=== PATIENT | female | born 1950 | race Caucasian/White ===

== ENCOUNTER 2018-10-09 08:21 | Day surgery (SDC) | payer MEDICARE, BC ==
[~2018-10-09] VITALS: Ht 152.4 cm; Wt 83.4 kg
[~2018-10-09 08:21] MED LIST: ALBU90OI61 INH; Avapro300 MG PO; CETI5 PO; Flonase 0.05% N16 GM; LIOT5 PO; MONT10T PO; Nexium40 MG PO; Pulmicort Fle180 MCG INH; SUMA25; Synthroid/Le0.075 MG PO; TEMA15 PO; Ventolin5 MG/1 ML INH
--- NOTE | 2018-10-09 10:35 | NUR ---
10/09/18 1035 Anastasiia Rey LATE ENTRY----PATIENT TO STEPDOWN WITH PAIN 5/10 SHE DESCRIBES CRAMPING. ABDOMEN IS SOFT TO PALPATION. PATIENT WAS ABLE TO TURN ONTO HER BACK AND SIT UP WITHOUT DIFFICULTY. CONVERSING AND DRINKING FLUIDS WITHOUT PROBLEMS. PRIOR TO DC OF THE IV PATIENT WAS RATING HER PAIN 2/10 AND STATES SHE IS FEELING MUCH BETTER AND READY TO GO HOME.
--- NOTE | 2018-10-09 10:37 | NUR ---
10/09/18 Anastasiia Pittman LATE ENTRY----WHEN WAKING UP AFTER PROCEDURE PATIENT WAS UNCOMFORTABLE, MOANING AND APPEARED UNCOMFORTABLE. WHEN ASKED PATIENT WAS ABLE TO TELL ME HER PAIN WAS 8/10 AND CRAMPING IN HER ABDOMEN. I EXPLAINED TO PATIENT THIS COULD BE FROM AIR IN HER ABDOMEN AND THIS SHOULD IMPROVE. DR VINCENT WAS NOTIFIED, ABDOMEN WAS SOFT TO PALPATION. I ENCOURAGED PATIENT TO PASS GAS/AIR IF SHE FELT THE NEED. PER DR VINCENT PATIENT MOVED TO STEPDOWN AND WILL WATCH.
== END 2018-10-09 10:25 | disposition home or self-care (01) ==
LOC: ORSCSDS 08:21
PROVIDERS: Internal Medicine Gastroenterology
PROC: 0DBL8ZX Excision of Transverse Colon, Via Natural or Artificial Opening Endoscopic, Diagnostic (ICD-10-PCS; principal; 2018-10-09 09:45)
PROC: 0DB68ZX Excision of Stomach, Via Natural or Artificial Opening Endoscopic, Diagnostic (ICD-10-PCS; principal; 2018-10-09 09:45)
PROC: 0DBN8ZX Excision of Sigmoid Colon, Via Natural or Artificial Opening Endoscopic, Diagnostic (ICD-10-PCS; principal; 2018-10-09 09:45)
PROC: 0D758ZZ Dilation of Esophagus, Via Natural or Artificial Opening Endoscopic (ICD-10-PCS; principal; 2018-10-09 09:45)
DX: Z12.11 Encounter for screening for malignant neoplasm of colon (principal); Z86.010 Personal history of colon polyps; D12.3 Benign neoplasm of transverse colon; R13.10 Dysphagia, unspecified; K63.5 Polyp of colon; K64.8 Other hemorrhoids; K22.2 Esophageal obstruction; K64.4 Residual hemorrhoidal skin tags; K25.9 Gastric ulcer, unspecified as acute or chronic, without hemorrhage or perforation; G47.33 Obstructive sleep apnea (adult) (pediatric); K21.0 Gastro-esophageal reflux disease with esophagitis; I10 Essential (primary) hypertension; M79.7 Fibromyalgia; E66.9 Obesity, unspecified; Z68.36 Body mass index [BMI] 36.0-36.9, adult; Z79.899 Other long term (current) drug therapy
CPT/HCPCS: 88305; 88342; J2704; J7120

== ENCOUNTER 2019-10-14 10:30 | Day surgery (SDC) | payer MEDICARE, BC ==
[~2019-10-14] VITALS: Ht 152.4 cm; Wt 82.0 kg
[~2019-10-14 10:30] MED LIST changes: +ALBU2.5V5 INH; +Citalopram HBr20 MG PO; +GABA300 PO; +HYDCHL25 PO; +METO50 PO; +NEURONTIN300 MG PO
[2019-10-14] MEDS ORDERED: DICLOFENAC SOD100 GM (11:19)
--- NOTE | 2019-10-14 11:39 | NUR ---
Karissa STATES SHE HAS A POLST. IT IS AT HOME, SHE STATES THAT SHE DOES NOT WANT CPR IF SHE ARREST HOWEVER; AGREES TODAY TO BE A FULL CODE GOING INTO [employer]NA[employer]. THE ADVANCE DIRECTIVE IS NOT HERE AT HOSPITAL. Pt states she completed one week ago. Pt verbalizes understanding that today she will be a full code the entire stay today. She will be bringing it to the hopsital in the near future.
--- NOTE | 2019-10-14 11:43 | NUR ---
COVID 19 NEGATIVE 10/12/19
[2019-10-14] MEDS ORDERED: CLOP75 PO (14:02)
--- NOTE | 2019-10-14 14:15 | NUR ---
1400 PATIENT RETURNED FROM THE [facility] WITH LEFT RADIAL ACCESS WUITH TR BAND IN PLACE WITH 10 ML OF AIR IN THE BAND. DROWSY, IN A RECLINER, MONITOR NEGRITO;IED, IV SALINE LOCKED. CALL LIGHT IN REACH. DRINKING SIPS OF WATER USING THE RIGHT HAND ONLY.
--- NOTE | 2019-10-14 14:16 | NUR ---
1415 PATIENT AWAKE NOW AND READY TO EAT. LUNCH SERVED, USING RIGHT HAND ONLY.
--- NOTE | 2019-10-14 14:43 | NUR ---
DR. BATES HERE TO DISCUSS PROCEDURE WITH PATIENT.
--- NOTE | 2019-10-14 16:12 | NUR ---
[address] TO THE LEFT RADIAL. BEGAN REMOVING AIR PER PROTOCOL.
--- NOTE | 2019-10-14 16:13 | NUR ---
1615 ALL AIR OUT OF THE BAND AT 1550. NO BLEEDING NOTED. PATIENT RESTING QUEITLY IN RECLINER. PATIENT PREVIOUSLY CALL AND HE WILL BE HERE TO DRIVE HER HOME.
--- NOTE | 2019-10-14 16:20 | NUR ---
1600 PATIENT C/O HEADACH COMING ON. GIVEN TYLENOL 650 MG PO ORDERED FOR PAIN.
--- NOTE | 2019-10-14 16:48 | NUR ---
1425 PATIENT UP AND DRESSED. PIV REMOVED FROM THE RIGHT AC, CATHETER TIP INTACT AND PRESSURE DRESSING APPLIED. HEADACHE BETTER BUT AURA OF MIGRAINE STILL PRESENT. TR BAND FLAT AND REMOVED, SITE CLEANED AND CLOTH DOT PLACED. WHITE ARM BOARD REPLACED AND ALL DISCHARGE INSTRUCTIONS REMOVED. PATIENT NEW SCRIPT WAS CALLED INTO THE PHARMACY ADN SHE WILL PICK IT UP ON HER WAY HOME. DISCHARGED VIA WHEELCHAIR TO VIA PRIVATE VEHICLE, HE IS HER SENIOR UI DESIGNER.
== END 2019-10-14 22:48 | disposition home or self-care (01) ==
LOC: MHTC 10:30
DX: I70.8 Atherosclerosis of other arteries (principal); I10 Essential (primary) hypertension; J45.909 Unspecified asthma, uncomplicated; Z88.2 Allergy status to sulfonamides; Z88.0 Allergy status to penicillin; Z88.8 Allergy status to other drugs, medicaments and biological substances; Z79.899 Other long term (current) drug therapy
CPT/HCPCS: 36200; 37236; 75605; 75710; 76937; 99152; 99153; A9270; C1725; C1769; C1876; C1887; C1894; J1644; J2250; J3010; J7030; Q9967

== ENCOUNTER → 2020-04-13 | Outpatient (CLI) | payer MEDICARE, BC ==
[~2020-04-13] MED LIST changes: +CLOP75 PO; +DICLOFENAC SOD100 GM
[2020-04-13 15:13] LABS: Protein, Urine Quantitative <5.0 mg/dL (0.0-11.9)
== END | disposition home or self-care (01) ==
LOC: LAB SHORT 10:00 → LAB 10:00 → LAB FUT 04-11 16:45
PROVIDERS: Internal Medicine Nephrology
DX: N18.30 Chronic kidney disease, stage 3 unspecified (principal); D63.1 Anemia in chronic kidney disease; N25.81 Secondary hyperparathyroidism of renal origin; E55.9 Vitamin D deficiency, unspecified; E78.00 Pure hypercholesterolemia, unspecified; G60.9 Hereditary and idiopathic neuropathy, unspecified; R76.9 Abnormal immunological finding in serum, unspecified; R94.5 Abnormal results of liver function studies
CPT/HCPCS: 81050; 82043; 82570; 84156

== ENCOUNTER → 2020-12-21 | Outpatient (CLI) | payer MEDICARE, BC ==
[2020-12-21 17:23] LABS: Protein, Urine Quantitative 5.7 mg/dL (0.0-11.9)
[2020-12-21 18:08] LABS: Microalbumin, Urine Quant. <5.000 mg/L (0.000-20.000)
== END | disposition home or self-care (01) ==
LOC: LAB 09:30 → LAB SHORT 09:30 → LAB FUT 12-18 11:10
PROVIDERS: Internal Medicine Nephrology
DX: N18.30 Chronic kidney disease, stage 3 unspecified (principal); D63.1 Anemia in chronic kidney disease; N25.81 Secondary hyperparathyroidism of renal origin; E55.9 Vitamin D deficiency, unspecified; E78.00 Pure hypercholesterolemia, unspecified; R76.9 Abnormal immunological finding in serum, unspecified; R94.5 Abnormal results of liver function studies; R94.6 Abnormal results of thyroid function studies
CPT/HCPCS: 81050; 82043; 82570; 84156

== ENCOUNTER 2021-03-23 10:35 | Day surgery (SDC) | payer MEDICARE, BC ==
[~2021-03-23] VITALS: Ht 152.4 cm; Wt 86.6 kg
[2021-03-23] MEDS ORDERED: FURO20 (11:20)
== END 2021-03-23 12:48 | disposition home or self-care (01) ==
LOC: ORSCSDS 10:35
PROVIDERS: Internal Medicine Gastroenterology
PROC: 0D757ZZ Dilation of Esophagus, Via Natural or Artificial Opening (ICD-10-PCS; principal; 2021-03-23 11:45)
PROC: 0DB58ZX Excision of Esophagus, Via Natural or Artificial Opening Endoscopic, Diagnostic (ICD-10-PCS; principal; 2021-03-23 11:45)
DX: R13.10 Dysphagia, unspecified (principal); I10 Essential (primary) hypertension; G47.33 Obstructive sleep apnea (adult) (pediatric); J45.909 Unspecified asthma, uncomplicated; E66.9 Obesity, unspecified; Z68.37 Body mass index [BMI] 37.0-37.9, adult; Z79.899 Other long term (current) drug therapy
CPT/HCPCS: 88305; J2704; J7120

== ENCOUNTER 2021-05-06 06:40 | Inpatient (IN) | payer MEDICARE, BC ==
[~2021-05-06] VITALS: Ht 152.4 cm; Wt 82.1 kg
[~2021-05-06 06:40] MED LIST changes: +EUTHYROX88 MCG PO; +FURO20 PO; +ONDA4 PO; +Prozac20 MG PO; -Synthroid/Le0.075 MG PO; +Tessalon200 MG PO
[2021-05-06 07:25] LABS: BASOPHILS ABSOLUTE AUTO 0.05 K/mm3 (0.00-0.23); BASOPHILS PERCENT AUTO 1 % (0-2); EOSINOPHILS ABSOLUTE AUTO 0.07 K/mm3 (0.00-0.68); EOSINOPHILS PERCENT AUTO 1 % (0-6); Hematocrit 40.1 % (33.0-51.0); Hemoglobin 13.5 g/dL (11.5-16.0); IMMATURE GRAN ABSOLUTE AUTO 0.08 K/mm3 (0.00-0.10); IMMATURE GRAN PERCENT AUTO 1 % (0-1); LYMPHOCYTES ABSOLUTE AUTO 1.53 K/mm3 (0.84-5.20); LYMPHOCYTES PERCENT AUTO 15 % (21-46); MONOCYTES ABSOLUTE AUTO 1.36 K/mm3 (0.16-1.47); MONOCYTES PERCENT AUTO 13 % (4-13); Mean Corpuscular HGB 30.6 pg (26.0-34.0); Mean Corpuscular HGB Conc 33.7 g/dL (31.5-36.5); Mean Corpuscular Volume 91 fL (80-100); Mean Platelet Volume 9.4 fL (9.1-12.4); NEUTROPHILS ABSOLUTE AUTO 7.34 K/mm3 (1.96-9.15); NEUTROPHILS PERCENT AUTO 70 % (41-73); Platelet Count 565 K/mm3 (150-400); RDW Coefficient Variation 12.6 % (11.7-14.2); RDW Standard Deviation 42.2 fL (35.1-46.3); Red Blood Cell Count 4.41 M/mm3 (3.80-5.20); White Blood Cell Count 10.43 K/mm3 (4.00-11.30)
[2021-05-06 07:36] LABS: Albumin, Blood 2.7 g/dL (3.4-5.0); Albumin/Globulin Ratio 0.6 (0.8-1.8); Bilirubin, Total 0.5 mg/dL (0.1-1.0); Calcium, Blood 8.8 mg/dL (8.5-10.1); Creatinine, Blood 1.06 mg/dL (0.40-1.00); Globulin, Blood 4.7 g/dL (2.2-4.0); Potassium, Blood 3.5 mmol/L (3.5-5.5); Total Protein, Blood 7.4 g/dL (6.4-8.2)
[2021-05-06] MEDS ORDERED: Ventolin/Proventil INH (09:39)
[2021-05-06] MEDS ORDERED: Pulmicort Fle180 MCG INH (09:40)
[2021-05-06] MEDS ORDERED: FLUOXETINE HCL20 M1 PO (09:41)
[2021-05-06] MEDS ORDERED: GABA300 PO (09:43)
[2021-05-06] MEDS ORDERED: LEVO-T88 MC1 PO (09:44)
[2021-05-06] MEDS ORDERED: MONT10T PO (09:45)
[2021-05-06] MEDS ORDERED: RESTORIL15 M1 PO (09:46)
[2021-05-06 09:47] LABS: Source, Urine Clean Catch
[2021-05-06] MEDS ORDERED: AVAPRO75 MG PO (09:51)
[2021-05-06 09:52] LABS: Appearance, Urine Clear (Clear); Bilirubin, Urine Neg (Neg); Blood, Urine 1+ (Neg); Color, Urine Yellow (P-Yellow); Glucose Qualitative, Urine Neg (Neg); Ketones, Urine 1+ (Neg); Leukocyte Esterase, Urine Neg (Neg); Nitrite, Urine Neg (Neg); Protein, Urine 2+ (Neg); Urobilinogen, Urine NORM (Normal)
[2021-05-06] MEDS ORDERED: Lopressor 25 mg25 MG PO (09:52)
[2021-05-06 10:02] LABS: White Blood Cells, Urine Not Seen /hpf (0-5)
[2021-05-06 10:03] LABS: Bacteria Few /hpf; Red Blood Cells, Urine 0-2 /hpf (0-2); Squamous Epithelial Cells Mod /hpf (Few)
[2021-05-06 10:05] LABS: Other Crystals Rare /hpf
[2021-05-06 10:06] LABS: Hyaline Casts 0-2 /lpf (0-2); Mucus Light (0-Heavy)
[2021-05-06 10:17] LABS: Anti-Xa UFH, PHA Monitoring <0.10 IU/mL; Prothrombin Time Results 11.5 Sec (9.7-11.5)
--- NOTE | 2021-05-06 11:05 | NUR ---
PATIENT ARRIVED IN ROOM 1045. BED IS IN LOW POSITION, WITH ALARM ON. FALL PRECAUTIONS DISCUSSED WITH ABIGAIL. PATIENT ORIENTATED TO HER SURROUNDINGS. PATIENT HAS 20ac IV RUNNING FLUIDS. COVID TEST IS ORDERED TO CONFIRM DX. PATIENT IS ON ISOLATION. FULL LIQUID DIET IS ORDERED DUE TO NAUSEA AND VOMITTING. PATIENT REPORTS THAT HER PAIN LEVEL IS DOWN TO A 4 CURRENTLY.
[2021-05-06 13:19] LABS: Influenza A, PCR NEGATIVE (NEGATIVE); Influenza B, PCR NEGATIVE (NEGATIVE); Resp Syncytial Virus, PCR NEGATIVE (NEGATIVE)
[2021-05-06 13:27] LABS: SARS-Cov-2 (COVID-19) PCR, MMC POSITIVE (NEGATIVE)
--- NOTE | 2021-05-06 18:13 | NUR ---
ROCEPHIN WAS ORDERED, REQUIRING ANOTHER IV TO BE PLACED. PLACEMENT UNSUCCESSFUL. CHARGE NURSE NOTIFIED.
--- NOTE | 2021-05-06 18:50 | NUR ---
PATIENT CAME FROM ER TODAY WITH PNEUMONIA R/T COVID. A COVID TEST WAS PERFORMED TO CONFIRM THE DIAGNOSIS THAT SHE WAS GIVEN 7-10 DAYS AGO. THE PATIENT HAS AN IV WITH HEPARIN RUNNING AND ns AT 100. ANOTHER IV SITE NEEDS TO BE PLACED DUE TO ROCEPHIN BEING ORDERED. FIRST ATTEMPTS AT NEW IV PLACEMENT UNSUCCESSFUL. PATIENT HAS PAIN IN ABDOMEN AND USES THE PRN OXYCODONE WITH EFFECTIVENESS. SHE IS ON A FULL LIQUID DIET DUE TO NAUSEA AND VOMITING. SHE HASN'T HAD ANY EPISODES OF N&V SINCE COMING TO THE FLOOR. PATIENT REPORTS THAT COUGH RETURNS CLEAR FLUID. LS ARE CRACKLES THROUGH OUT.
[2021-05-07 01:11] LABS: BASOPHILS ABSOLUTE AUTO 0.04 K/mm3 (0.00-0.23); BASOPHILS PERCENT AUTO 0 % (0-2); EOSINOPHILS PERCENT AUTO 1 % (0-6); Hematocrit 37.9 % (33.0-51.0); Hemoglobin 12.1 g/dL (11.5-16.0); IMMATURE GRAN ABSOLUTE AUTO 0.09 K/mm3 (0.00-0.10); IMMATURE GRAN PERCENT AUTO 1 % (0-1); LYMPHOCYTES ABSOLUTE AUTO 1.61 K/mm3 (0.84-5.20); LYMPHOCYTES PERCENT AUTO 14 % (21-46); MONOCYTES ABSOLUTE AUTO 1.63 K/mm3 (0.16-1.47); MONOCYTES PERCENT AUTO 14 % (4-13); Mean Corpuscular HGB 30.4 pg (26.0-34.0); Mean Corpuscular HGB Conc 31.9 g/dL (31.5-36.5); Mean Corpuscular Volume 95 fL (80-100); Mean Platelet Volume 9.4 fL (9.1-12.4); NEUTROPHILS ABSOLUTE AUTO 8.14 K/mm3 (1.96-9.15); NEUTROPHILS PERCENT AUTO 70 % (41-73); Platelet Count 444 K/mm3 (150-400); RDW Coefficient Variation 12.8 % (11.7-14.2); RDW Standard Deviation 45.3 fL (35.1-46.3); Red Blood Cell Count 3.98 M/mm3 (3.80-5.20); White Blood Cell Count 11.61 K/mm3 (4.00-11.30)
[2021-05-07 01:28] LABS: Anti-Xa UFH, PHA Monitoring 0.65 IU/mL; D-Dimer, Quantitative 3.09 mg/L FEU (0.00-0.52)
[2021-05-07 01:29] LABS: Albumin, Blood 2.7 g/dL (3.4-5.0); Albumin/Globulin Ratio 0.7 (0.8-1.8); Bilirubin, Total 0.2 mg/dL (0.1-1.0); Bun/Creatinine Ratio 13.6 (12.0-20.0); Calcium, Blood 8.3 mg/dL (8.5-10.1); Creatinine, Blood 0.96 mg/dL (0.40-1.00); Globulin, Blood 3.9 g/dL (2.2-4.0); Magnesium, Blood 1.9 mg/dL (1.6-2.4); Potassium, Blood 3.8 mmol/L (3.5-5.5); Total Protein, Blood 6.6 g/dL (6.4-8.2)
--- NOTE | 2021-05-07 04:27 | NUR ---
NAPRAPATH SUMMARY PATIENT HAD A FAIR SHIFT. WITH V/S CHECKED AND STABLE. STILL HAVING ABDOMINAL PAIN, SHE WAS MEDICATED SHE NEEDED. WILL CONTINUE TO MONITOR HER.
--- NOTE | 2021-05-07 18:12 | NUR ---
Patient DX covid Pneumonia-spleen infarct. She is on Hep drip of 17/hr. she was seen by respiratory today and given breathing treatment and placed on O2 2L. Patient continues to have complaint of pain, but complaints appear less frequent. Pain is usually around a 6 when pain med is requested. Patients pain is located in abd, both mid and LUQ. She also states that it hurts in her chest when she inhales. We will continue to monitor and provide support as directed.
--- NOTE | 2021-05-08 04:04 | NUR ---
SHIFT SUMMARY: HEPARIN GTT IS INFUSING AT 17 MEQ/KG/HR. 2052 ANTI XA RESULT WAS 0.49, NO CHANGES TO RATE. PATIENT REPORTS PAIN IN LEFT SIDE, TYLENOL WAS GIVEN WITH GOOD EFFECT. PATIENT REMAINS IN DROPLET ISOLATION FOR COVID.
[2021-05-08 05:46] LABS: Hematocrit 35.5 % (33.0-51.0); Hemoglobin 11.3 g/dL (11.5-16.0); Mean Corpuscular HGB 30.1 pg (26.0-34.0); Mean Corpuscular HGB Conc 31.8 g/dL (31.5-36.5); Mean Corpuscular Volume 95 fL (80-100); Platelet Count 464 K/mm3 (150-400); RDW Standard Deviation 45.2 fL (35.1-46.3); Red Blood Cell Count 3.75 M/mm3 (3.80-5.20); White Blood Cell Count 12.88 K/mm3 (4.00-11.30)
--- NOTE | 2021-05-08 10:33 | NUR ---
Pt. was alert and welcomed my visit. Pt. had a bad cough and was unsettled by pain attributed to a blood clot on her spleen. Nurse and Physician visit while I am present. Established rapport with pt. Normalized pt. experience and supported the input from the physician. Pt. displayed evidence of enagement and agreement. Pt. verbalized encouragement and gratitude. Prayed with Pt.
[2021-05-08] MEDS ORDERED: ELIQUIS5 M2 PO (15:46)
[2021-05-08] MEDS ORDERED: DOCU100 PO (15:46)
[2021-05-08] MEDS ORDERED: OXYC10TA19 PO (15:47)
[2021-05-08] MEDS ORDERED: Sen-O-Tab8.6 MG PO (15:47)
--- NOTE | 2021-05-08 16:25 | NUR ---
DISCHARGE SUMMARY: PT A/O X 4 AT TIME OF DISCHARGE, STABLE ON FEET. PT EDUCATED ON DISCHARGE MEDICATIONS AND INSTRUCTIONS. SPOUSE PRESENT. PT VU. PT ASSISTED WITH PACKING UP BELONGINGS. PT ESCORTED TO POV VIA WC BY SHAYAN.
== END 2021-05-08 16:22 | disposition home or self-care (01) | DRG 177 ==
LOC: ER 06:40 → MEDS 09:29
PROVIDERS: Emergency Medicine; Internal Medicine; ADMIT Internal Medicine
DX: U07.1 COVID-19 (principal); J12.82 Pneumonia due to coronavirus disease 2019; J96.01 Acute respiratory failure with hypoxia; D68.69 Other thrombophilia; N39.0 Urinary tract infection, site not specified; D73.5 Infarction of spleen; K21.9 Gastro-esophageal reflux disease without esophagitis; G62.9 Polyneuropathy, unspecified; I16.0 Hypertensive urgency; R11.2 Nausea with vomiting, unspecified; T50.B95A Adverse effect of other viral vaccines, initial encounter; I12.9 Hypertensive chronic kidney disease with stage 1 through stage 4 chronic kidney disease, or unspecified chronic kidney disease; N18.9 Chronic kidney disease, unspecified; J45.909 Unspecified asthma, uncomplicated; E03.9 Hypothyroidism, unspecified; Z90.49 Acquired absence of other specified parts of digestive tract; Z90.89 Acquired absence of other organs; Z90.710 Acquired absence of both cervix and uterus; Z98.51 Tubal ligation status; Z88.0 Allergy status to penicillin; Z88.2 Allergy status to sulfonamides; Z88.8 Allergy status to other drugs, medicaments and biological substances; Z79.899 Other long term (current) drug therapy
CPT/HCPCS: 0241U; 36415; 74177; 80053; 81001; 83690; 83735; 85025; 85027; 85379; 85520; 85610; 86140; 87086; 93005; 93010; 94640; 96374-59; 96375; 99285-25; A9270; J0696; J1644; J2270; J2405; J3010; J7030; J7050; Q9967

== ENCOUNTER → 2021-12-03 | Outpatient (CLI) | payer MEDICARE, BC ==
[~2021-12-03] MED LIST changes: +AVAPRO75 MG PO; +DOCU100 PO; +ELIQUIS5 M2 PO; +FLUOXETINE HCL20 M1 PO; +LEVO-T88 MC1 PO; +Lopressor 25 mg25 MG PO; +OXYC10TA19 PO; +RESTORIL15 M1 PO; +Sen-O-Tab8.6 MG PO; +Ventolin/Proventil INH
[2021-12-03 17:14] LABS: BASOPHILS PERCENT AUTO 1 % (0-2); EOSINOPHILS PERCENT AUTO 1 % (0-6); Hematocrit 40.5 % (33.0-51.0); Hemoglobin 13.6 g/dL (11.5-16.0); IMMATURE GRAN ABSOLUTE AUTO 0.04 K/mm3 (0.00-0.10); IMMATURE GRAN PERCENT AUTO 0 % (0-1); LYMPHOCYTES ABSOLUTE AUTO 2.48 K/mm3 (0.84-5.20); LYMPHOCYTES PERCENT AUTO 26 % (21-46); MONOCYTES ABSOLUTE AUTO 1.33 K/mm3 (0.16-1.47); MONOCYTES PERCENT AUTO 14 % (4-13); Mean Corpuscular HGB 30.8 pg (26.0-34.0); Mean Corpuscular HGB Conc 33.6 g/dL (31.5-36.5); Mean Corpuscular Volume 92 fL (80-100); NEUTROPHILS ABSOLUTE AUTO 5.39 K/mm3 (1.96-9.15); NEUTROPHILS PERCENT AUTO 57 % (41-73); Platelet Count 430 K/mm3 (150-400); RDW Coefficient Variation 13.3 % (11.7-14.2); RDW Standard Deviation 45.1 fL (35.1-46.3); Red Blood Cell Count 4.41 M/mm3 (3.80-5.20); White Blood Cell Count 9.44 K/mm3 (4.00-11.30)
[2021-12-03 17:35] LABS: Albumin, Blood 3.4 g/dL (3.4-5.0); Albumin/Globulin Ratio 0.8 (0.8-1.8); Bilirubin, Total 0.4 mg/dL (0.1-1.0); Calcium, Blood 8.7 mg/dL (8.5-10.1); Creatinine, Blood 1.31 mg/dL (0.40-1.00); Globulin, Blood 4.2 g/dL (2.2-4.0); Potassium, Blood 3.4 mmol/L (3.5-5.5); Total Protein, Blood 7.6 g/dL (6.4-8.2)
== END | disposition home or self-care (01) ==
LOC: LAB SHORT 17:09
PROVIDERS: Physician Assistant
DX: R06.00 Dyspnea, unspecified (principal)
CPT/HCPCS: 80053; 84484; 85025; 85379

== ENCOUNTER → 2023-08-06 | Outpatient (CLI) | payer MEDICARE, BC ==
[2023-08-06 15:11] LABS: Microalb/Creat Ratio UR, Rand 11.085 mg/g (0.000-30.000); Microalbumin, Random Urine 14.3 mg/L (0.000-20.000); Protein, Urine Random 16.4 mg/dL (0.0-11.9); Protein/Creat Ratio, Ur Random 0.1
== END ==
LOC: LAB 12:46 → LAB SHORT 12:46 → EDSTATUS 08-04 14:30 → LAB FUT 08-04 14:30
PROVIDERS: Internal Medicine Nephrology
DX: N18.30 Chronic kidney disease, stage 3 unspecified (principal); D63.1 Anemia in chronic kidney disease; N25.81 Secondary hyperparathyroidism of renal origin; E55.9 Vitamin D deficiency, unspecified; E78.00 Pure hypercholesterolemia, unspecified; R76.9 Abnormal immunological finding in serum, unspecified; R94.5 Abnormal results of liver function studies; R94.6 Abnormal results of thyroid function studies
CPT/HCPCS: 82043; 82570; 84156

== ENCOUNTER 2024-03-12 14:04 | Day surgery (SDC) | payer MEDICARE, BC ==
[~2024-03-12] VITALS: Ht 149.9 cm; Wt 82.0 kg
[~2024-03-12 14:04] MED LIST changes: +Atropine Sulfate 0.1 MG/ML 10ML SYR ONE; +Glycopyrrolate 0.2 MG/ML 1MLVIAL ONE; +Lactated Ringer's 1,000 ML IV ONE; +Lidocaine 2% 5 ML SDV ONE; +Lidocaine HCl/Pf 1% 5 ML VIAL ONE; +Methylene Blue 1% 100 MG/10 ML VIAL ONE; +Ondansetron HCl 2 MG / ML 2ML Vial ONE; +ePHEDrine Sulfate 50 MG/ML 1ML Injection ONE; +propofoL 50 ML IV ONE
[2024-03-12] MEDS ORDERED: Lactated Ringer's 1,000 ML IV ONE (14:45)
[2024-03-12] MEDS ORDERED: Crestor40 MG (14:48)
[2024-03-12] MEDS ORDERED: ROPI1 (14:49)
[2024-03-12 15:59] VITALS: BP 133/90
== END 2024-03-12 15:50 | disposition home or self-care (01) ==
LOC: ORSCSDS 14:04
PROVIDERS: Internal Medicine Gastroenterology
PROC: 0DBL8ZX Excision of Transverse Colon, Via Natural or Artificial Opening Endoscopic, Diagnostic (ICD-10-PCS; principal; 2024-03-12 15:15)
PROC: 0DBN8ZX Excision of Sigmoid Colon, Via Natural or Artificial Opening Endoscopic, Diagnostic (ICD-10-PCS; principal; 2024-03-12 15:15)
PROC: 0DBP8ZX Excision of Rectum, Via Natural or Artificial Opening Endoscopic, Diagnostic (ICD-10-PCS; principal; 2024-03-12 15:15)
DX: R19.4 Change in bowel habit (principal); Z86.0101 Personal history of adenomatous and serrated colon polyps; K62.1 Rectal polyp; D12.5 Benign neoplasm of sigmoid colon; K63.5 Polyp of colon; E11.9 Type 2 diabetes mellitus without complications; G47.33 Obstructive sleep apnea (adult) (pediatric); I10 Essential (primary) hypertension; I25.10 Atherosclerotic heart disease of native coronary artery without angina pectoris; K21.9 Gastro-esophageal reflux disease without esophagitis; F32.A Depression, unspecified
CPT/HCPCS: 82947; 88305; J0461; J2003; J2405; J2704; J7120; Q9968

== ENCOUNTER 2024-05-27 12:15 | Emergency (ER) | payer MEDICARE, BC ==
[~2024-05-27] VITALS: Ht 149.9 cm; Wt 83.9 kg
[~2024-05-27 12:15] MED LIST changes: -Atropine Sulfate 0.1 MG/ML 10ML SYR ONE; +Crestor40 MG; -Glycopyrrolate 0.2 MG/ML 1MLVIAL ONE; -Lactated Ringer's 1,000 ML IV ONE; -Lidocaine 2% 5 ML SDV ONE; -Lidocaine HCl/Pf 1% 5 ML VIAL ONE; -Methylene Blue 1% 100 MG/10 ML VIAL ONE; -Ondansetron HCl 2 MG / ML 2ML Vial ONE; +ROPI1; -ePHEDrine Sulfate 50 MG/ML 1ML Injection ONE; -propofoL 50 ML IV ONE
[2024-05-27 12:29] VITALS: BP 158/102
[2024-05-27 13:19] LABS: Albumin, Blood 3.3 g/dL (3.4-5.0); Albumin/Globulin Ratio 0.8 (0.8-1.8); Bilirubin, Total 0.5 mg/dL (0.1-1.0); Calcium, Blood 9.6 mg/dL (8.5-10.1); Creatinine, Blood 1.25 mg/dL (0.40-1.00); Globulin, Blood 3.9 g/dL (2.2-4.0); Potassium, Blood 4.8 mmol/L (3.5-5.5); Total Protein, Blood 7.2 g/dL (6.4-8.2)
[2024-05-27 13:50] LABS: BASOPHILS ABSOLUTE AUTO 0.09 K/mm3 (0.00-0.23); BASOPHILS PERCENT AUTO 1 % (0-2); EOSINOPHILS ABSOLUTE AUTO 0.12 K/mm3 (0.00-0.68); EOSINOPHILS PERCENT AUTO 1 % (0-6); Hemoglobin 13.6 g/dL (11.5-16.0); IMMATURE GRAN ABSOLUTE AUTO 0.04 K/mm3 (0.00-0.10); IMMATURE GRAN PERCENT AUTO 1 % (0-1); LYMPHOCYTES ABSOLUTE AUTO 2.33 K/mm3 (0.84-5.20); LYMPHOCYTES PERCENT AUTO 27 % (21-46); MONOCYTES ABSOLUTE AUTO 0.91 K/mm3 (0.16-1.47); MONOCYTES PERCENT AUTO 11 % (4-13); Mean Corpuscular HGB 30.2 pg (26.0-34.0); Mean Corpuscular HGB Conc 32.4 g/dL (31.5-36.5); Mean Corpuscular Volume 93 fL (80-100); Mean Platelet Volume 10.3 fL (9.1-12.4); NEUTROPHILS PERCENT AUTO 60 % (41-73); Platelet Count 360 K/mm3 (150-400); RDW Coefficient Variation 14.3 % (11.7-14.2); RDW Standard Deviation 49.1 fL (35.1-46.3); White Blood Cell Count 8.69 K/mm3 (4.00-11.30)
== END 2024-05-27 14:25 | disposition home or self-care (01) ==
LOC: ER 12:15
PROVIDERS: Student in an Organized Health Care Education/Training Program
DX: R94.31 Abnormal electrocardiogram [ECG] [EKG] (principal); I10 Essential (primary) hypertension; Z79.899 Other long term (current) drug therapy; Z88.0 Allergy status to penicillin; Z88.2 Allergy status to sulfonamides; Z88.8 Allergy status to other drugs, medicaments and biological substances
CPT/HCPCS: 71046; 80053; 83690; 84484; 85025; 93005; 93010; 99285-25

== ENCOUNTER 2024-10-26 01:18 | Emergency (ER) | payer MEDICARE, BC ==
[~2024-10-26] VITALS: Ht 152.4 cm; Wt 84.8 kg
[2024-10-26] MEDS ORDERED: FentaNYL Citrate 50 MCG/ML 2 ML Injection IV PRN (03:35)
[2024-10-26 04:07] LABS: BASOPHILS ABSOLUTE AUTO 0.07 K/mm3 (0.00-0.23); BASOPHILS PERCENT AUTO 1 % (0-2); EOSINOPHILS ABSOLUTE AUTO 0.24 K/mm3 (0.00-0.68); EOSINOPHILS PERCENT AUTO 2 % (0-6); Hematocrit 30.5 % (33.0-51.0); Hemoglobin 9.6 g/dL (11.5-16.0); IMMATURE GRAN ABSOLUTE AUTO 0.06 K/mm3 (0.00-0.10); IMMATURE GRAN PERCENT AUTO 1 % (0-1); LYMPHOCYTES ABSOLUTE AUTO 2.51 K/mm3 (0.84-5.20); LYMPHOCYTES PERCENT AUTO 22 % (21-46); MONOCYTES ABSOLUTE AUTO 1.33 K/mm3 (0.16-1.47); MONOCYTES PERCENT AUTO 12 % (4-13); Mean Corpuscular HGB Conc 31.5 g/dL (31.5-36.5); Mean Corpuscular Volume 95 fL (80-100); NEUTROPHILS ABSOLUTE AUTO 7.11 K/mm3 (1.96-9.15); NEUTROPHILS PERCENT AUTO 63 % (41-73); NRBC ABSOLUTE 0.00 K/mm3 (0.00-0.02); NRBC Auto 0.0 /100 WBC (0.0-0.2); Platelet Count 363 K/mm3 (150-400); RDW Coefficient Variation 14.3 % (11.7-14.2); RDW Standard Deviation 49.7 fL (35.1-46.3)
[2024-10-26 04:33] LABS: Alanine Aminotransfer (ALT/SGP 14.0 U/L (12-78); Albumin, Blood 2.8 g/dL (3.4-5.0); Albumin/Globulin Ratio 0.7 (0.8-1.8); Anion Gap 4.0 mmol/L (3-11); Aspartate Aminotrans (AST/SGOT 14.0 U/L (12-37); Bilirubin, Total 0.3 mg/dL (0.1-1.0); Blood Urea Nitrogen 17.0 mg/dL (8-24); CO2, Blood 31.0 mmol/L (21-32); Calcium, Blood 8.2 mg/dL (8.5-10.1); Chloride, Blood 106.0 mmol/L (98-108); Creatinine, Blood 1.16 mg/dL (0.40-1.00); Globulin, Blood 3.8 g/dL (2.2-4.0); Glucose, Blood 94.0 mg/dL (70-99); Potassium, Blood 4.4 mmol/L (3.5-5.5); Sodium, Blood 137.0 mmol/L (136-145); Total Protein, Blood 6.6 g/dL (6.4-8.2)
[2024-10-26 05:25] LABS: Source, Urine Clean Catch
[2024-10-26 05:32] LABS: Bilirubin, Urine Neg (Neg); Color, Urine Yellow (P-Yellow); Glucose Qualitative, Urine 4+ (Neg); Ketones, Urine Neg (Neg); Leukocyte Esterase, Urine Neg (Neg); Protein, Urine Neg (Neg); Specific Gravity, Urine 1.015 (1.003-1.022); Urobilinogen, Urine NORM (Normal)
[2024-10-26] MEDS ORDERED: NS 1,000 ML IV SCH (06:20)
--- NOTE | 2024-10-26 09:50 | NUR ---
Pt. is awake in ICU1 when she welcomes my visit. Pt. was being prepared for imaging. 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 Re-established rapport and Pt. displayed evidence of trust and confidence. Prayed with the pt. ER Nurse and microbiological lab technician are present. pt. verbalized gratitude for the spiritual care visit. Will remain available to the pt.
[2024-10-26] MEDS ORDERED: Robaxin750 MG PO (13:18)
[2024-10-26] MEDS ORDERED: Ketorolac Tromethamine 30mg Vial IV ONE (13:25)
[2024-10-26 13:30] VITALS: BP 156/82
== END 2024-10-26 13:40 | disposition home or self-care (01) ==
LOC: ER 01:18
PROVIDERS: Emergency Medicine
DX: M54.42 Lumbago with sciatica, left side (principal); M54.16 Radiculopathy, lumbar region; M96.89 Other intraoperative and postprocedural complications and disorders of the musculoskeletal system; E86.0 Dehydration; E03.9 Hypothyroidism, unspecified; K21.9 Gastro-esophageal reflux disease without esophagitis; I12.9 Hypertensive chronic kidney disease with stage 1 through stage 4 chronic kidney disease, or unspecified chronic kidney disease; N18.9 Chronic kidney disease, unspecified; J45.909 Unspecified asthma, uncomplicated; Z98.1 Arthrodesis status; Z88.0 Allergy status to penicillin; Z88.2 Allergy status to sulfonamides; Z88.8 Allergy status to other drugs, medicaments and biological substances; Z91.040 Latex allergy status; Z79.890 Hormone replacement therapy; Z79.899 Other long term (current) drug therapy; Z59.89 Other problems related to housing and economic circumstances
CPT/HCPCS: 51701; 51798; 72158; 74177; 80053; 81003; 85025; 96374-59; 96375-59; 96376-59; 99284-25; A6590; A9579; J1885; J3010; J7030; Q9967

== ENCOUNTER 2024-11-09 13:42 | Day surgery (SDC) | payer MEDICARE, BC ==
[~2024-11-09] VITALS: Ht 152.4 cm; Wt 82.8 kg
[~2024-11-09 13:42] MED LIST changes: +Glycopyrrolate 0.2 MG/ML 1MLVIAL ONE; +Ondansetron HCl 2 MG / ML 2ML Vial ONE; +Robaxin750 MG PO; +ePHEDrine Sulfate 50 MG/ML 1ML Injection ONE
[2024-11-09] MEDS ORDERED: Aspir 8181 MG PO (14:01)
[2024-11-09] MEDS ORDERED: Norco 5-325 Ta1 EACH (14:02)
[2024-11-09] MEDS ORDERED: SPIRONOLACTONE25 MG PO (14:06)
[2024-11-09] MEDS ORDERED: FARXIGA10 MG PO (14:06)
[2024-11-09] MEDS ORDERED: Methocarbamol750 MG PO (14:06)
[2024-11-09 14:16] VITALS: BP 157/76
== END 2024-11-09 15:08 | disposition home or self-care (01) ==
LOC: ORSCSDS 13:42
PROVIDERS: Internal Medicine Gastroenterology
PROC: 0DB68ZX Excision of Stomach, Via Natural or Artificial Opening Endoscopic, Diagnostic (ICD-10-PCS; principal; 2024-11-09 15:00)
DX: R13.10 Dysphagia, unspecified (principal); K21.9 Gastro-esophageal reflux disease without esophagitis; R10.13 Epigastric pain; I12.9 Hypertensive chronic kidney disease with stage 1 through stage 4 chronic kidney disease, or unspecified chronic kidney disease; N18.30 Chronic kidney disease, stage 3 unspecified; I10 Essential (primary) hypertension; E03.9 Hypothyroidism, unspecified; F32.A Depression, unspecified; Z79.82 Long term (current) use of aspirin; Z79.899 Other long term (current) drug therapy
CPT/HCPCS: 88305; 88342; J0461; J2003; J2405; J2704; J7120; Q9968